=== PATIENT | male | born 1985 ===

== ENCOUNTER 2016-10-06 04:32 | Emergency (ER) | payer SELFPAY ==
[2016-10-06 04:38] VITALS: BP 142/96; TEMP 97.8; O2SAT 99
[2016-10-06 04:43] VITALS: PULSE 61; RESP 14
[2016-10-06] MEDS ORDERED: Fluorescein 1 mg Ophthalmic Strip ONE (05:01)
[2016-10-06] MEDS ORDERED: Ophthalmic Irrigation, Soln ONE (05:06)
[2016-10-06] MEDS ORDERED: Tobramycin 0.3% OPH OINT OD STA (05:28)
[2016-10-06] MEDS ORDERED: Tobramycin 0.3% OPH OINT ONE (05:43)
--- NOTE | 2016-10-06 05:53 | C.PDOC ---
History Of Present Illness A 30 y/o male c/o foreign body sensation to the right eye after walking outside yesterday. Pt notes he irrigated his right eye with water but with no relief. Pt states now he feels a foreign body sensation and tearing to the right eye. Pt denies headache, eye discharge, photophobia, visual changes or any other complaints. Time Seen by Provider: 10/06/16 05:08 Chief Complaint (Nursing): Eye Problem History Per: Patient History/Exam Limitations: no limitations Onset/Duration Of Symptoms: Days Current Symptoms Are (Timing): Still Present Injury To Eye?: No Severity: Mild Associated Symptoms: FB Sensation, Other (tearing). denies: Decreased Vision, Discharge From Eye Recent travel outside of the [place]: No Additional History Per: Patient Past Medical History Reviewed: Historical Data, Nursing Documentation, Vital Signs Vital Signs: Last Vital Signs Temp 97.8 F 10/06/16 04:39 Pulse 61 10/06/16 04:39 Resp 14 10/06/16 04:39 BP 142/96 H 10/06/16 04:39 Pulse Ox 99 10/06/16 06:16 - Medical History PMH: No Chronic Diseases Family History: States: Unknown Family Hx - Social History Hx Tobacco Use: No Hx Alcohol Use: No Hx Substance Use: No - Immunization History Hx Tetanus Toxoid Vaccination: No Hx Influenza Vaccination: No Hx Pneumococcal Vaccination: No Review Of Systems Except As Marked, All Systems Reviewed And Found Negative. Constitutional: Negative for: Fever, Chills Eyes: Positive for: Pain (Foreign body sensation to the right eye), Redness ( right). Negative for: Vision Change, Other (Eye discharge, photophobia) Neurological: Negative for: Headache, Dizziness Physical Exam - Physical Exam Appears: Non-toxic, No Acute Distress Skin: Warm, Dry Head: Atraumatic, Normacephalic Eye(s): right: Other (Right conjunctival injection. Multiple small conjunctival abrasions and small corneal abrasion at 9 o'clock position. No foreign body noted. VA 20/20 without correction), left: Normal Inspection Neurological/Psych: Oriented x3, Normal Speech, Normal Cognition, Normal Cranial Nerves, Other (No focal deficit) ED Course And Treatment O2 Sat by Pulse Oximetry: 99 (RA) Pulse Ox Interpretation: Normal Progress Note: Right eye irrigated with eye wash and tobrex oint applied. Pt in NAD VSS, advised Eye doctor referral today Disposition Counseled Patient/Family Regarding: Diagnosis, Need For Followup, Rx Given - Disposition Referrals: Doe Abraham MD [Staff Provider] - Disposition: HOME/ ROUTINE Disposition Time: 06:12 Condition: STABLE Additional Instructions: Continue eye ointment 3 x daily x [address] Abraham for appt today Return to ER if symptoms worsen Instructions: Corneal Abrasion (ED) Print Language: MOROCCAN - Clinical Impression Clinical Impression: Corneal abrasion, right, Conjunctival abrasion
== END 2016-10-06 06:22 | disposition home or self-care (01) ==
LOC: C.ER 04:32
DX: S05.01XA Injury of conjunctiva and corneal abrasion without foreign body, right eye, initial encounter (principal); X58.XXXA Exposure to other specified factors, initial encounter; Y92.410 Unspecified street and highway as the place of occurrence of the external cause

== ENCOUNTER 2017-10-30 07:35 | Day surgery (SDC) | payer OTHER ==
[2017-10-29 11:36] VITALS: BMI 26.4
[2017-10-30 08:40] VITALS: TEMP 98
[2017-10-30] MEDS ORDERED: Lactated Ringer's 500 ML IV ONE (10:40)
[2017-10-30] MEDS ORDERED: Propofol 10 mg/ml Inj (20 ML) ONE (10:57)
[2017-10-30] MEDS ORDERED: Midazolam 2 MG/2 ML VIAL ONE (10:57)
[2017-10-30 13:10] VITALS: PULSE 55
[2017-10-30 13:16] VITALS: BP 107/67; RESP 11; O2SAT 99
== END 2017-10-30 12:55 | disposition home or self-care (01) ==
LOC: C.ENDO 07:35
PROVIDERS: ATTEND Internal Medicine Gastroenterology
DX: K59.01 Slow transit constipation (principal); R10.13 Epigastric pain; K64.8 Other hemorrhoids; K29.70 Gastritis, unspecified, without bleeding
CPT/HCPCS: 43239; 45378; 88305; J2001; J2250; J2704; J3010; J7120

== ENCOUNTER 2018-08-11 08:31 | Emergency (ER) | payer OTHER ==
[2018-08-11 08:32] VITALS: BMI 26.4
--- NOTE | 2018-08-11 09:11 | C.PDOC ---
History Of Present Illness 32 y/o male presents to the ER complaining of an episode of shortness of breath with coughing with blood tinged sputum which began in the morning. Patient reports that he felt like something might be stuck in his throat; He notes that he last ate a hamburger yesterday. He denies ingesting any hard food or food with bones. He also states that he had cough and runny nose for about 5 days which resolved 1 week ago. Patient denies fever,chills, nausea, vomiting, abdominal pain, diarrhea. Time Seen by Provider: 08/11/18 08:37 Chief Complaint (Nursing): Shortness Of Breath History Per: Patient History/Exam Limitations: no limitations Onset/Duration Of Symptoms: Hrs Current Symptoms Are (Timing): Still Present Severity: Moderate Past Medical History Reviewed: Historical Data, Nursing Documentation, Vital Signs Vital Signs: Last Vital Signs Temp 98.4 F 08/11/18 08:33 Pulse 68 08/11/18 08:33 Resp 17 08/11/18 08:47 BP 126/85 08/11/18 08:33 Pulse Ox 99 08/11/18 08:47 Primary Care Provider: Non [facility] Provider, - Medical History PMH: No Chronic Diseases Denies: Chronic Kidney Disease Surgical History: Endoscopy Family History: States: No Known Family Hx - Social History Hx Tobacco Use: No Hx Alcohol Use: No Hx Substance Use: No - Immunization History Hx Tetanus Toxoid Vaccination: No Hx Influenza Vaccination: No Hx Pneumococcal Vaccination: No Review Of Systems Constitutional: Negative for: Fever, Chills Cardiovascular: Positive for: Other (burning sensation in chest). Negative for: Palpitations Respiratory: Positive for: Cough, Shortness of Breath Gastrointestinal: Negative for: Nausea, Vomiting, Abdominal Pain Skin: Negative for: Rash Physical Exam - Physical Exam Appears: Well, Non-toxic, No Acute Distress Skin: Normal Color, Warm, Dry Eye(s): bilateral: Normal Inspection Ear(s): Bilateral: Normal Oral Mucosa: Moist Throat: Normal, No Erythema, No Exudate, No Drooling, No Mass, Other (uvula midline and normal in appearance ) Neck: Supple Lymphatic: No Adenopathy Chest: No Ecchymosis, No Subcutaneous Emphysema Cardiovascular: Rhythm Regular Respiratory: Normal Breath Sounds, No Rales, No Rhonchi, No Wheezing Gastrointestinal/Abdominal: Normal Exam, Bowel Sounds, Soft, No Tenderness Extremity: Normal ROM Neurological/Psych: Oriented x3 ED Course And Treatment O2 Sat by Pulse Oximetry: 99 (RA) Pulse Ox Interpretation: Normal - Other Rad CXR X-Ray: Viewed By Me, Read By Radiologist Interpretation: HISTORY: prod cough. COMPARISON: Chest x-ray performed 01/30/17. TECHNIQUE: Chest PA and lateral, 2 views. FINDINGS: LUNGS: No focal consolidation. Please note that chest x-ray has limited sensitivity for the detection of pulmonary masses. PLEURA: No significant pleural effusion identified. No definite pneumothorax . CARDIOVASCULAR: The cardiomediastinal silhouette appears within normal limits of size. No atherosclerotic calcification present. OSSEOUS STRUCTURES: Degenerative changes of the spine. VISUALIZED UPPER ABDOMEN: Unremarkable. OTHER FINDINGS: None. IMPRESSION: No focal consolidation. Progress Note: CXR, Xrays of soft tissue neck and EKG ordered and reviewed. Patient given PO Pepcid. Reevaluation Time: 11:00 Reassessment Condition: Improved (Patient reassessed, is resting comfortably and states he feels better. Patient's symptoms likely due to GERD. Xrays neg for abnormalities. Patient given Rx for protonix, and he was instructed to follow up with medical clinic/PMD in 1-2 days. He understands he should return to ED if symptoms worsen.) Disposition Counseled Patient/Family Regarding: Studies Performed, Diagnosis, Need For Followup, Rx Given - Disposition Referrals: [facility] [Outside] Disposition: HOME/ ROUTINE Disposition Time: 11:00 Condition: STABLE Additional Instructions: FOLLOW UP WITH MEDICAL CLINIC IN 1-2 DAYS USE MEDICATION DAILY RETURN TO EMERGENCY ROOM IF YOUR SYMPTOMS WORSEN SEGUIR CON LA CLNICA MDICA EN 1-2 IVY UTILIZAR MEDICAMENTOS DIARIAMENTE VUELVA A LA [facility] SNTOM[facility] Prescriptions: Pantoprazole [Protonix EC Tab] 20 mg PO DAILY #30 ect Instructions: Dyspepsia (DC), Coughing up Blood Forms: [facility] (Swazi) Print Language: DANISH - Clinical Impression Clinical Impression: Dyspepsia, GERD (gastroesophageal reflux disease) - Scribe Statement The provider has reviewed the documentation as recorded by the Christy Flores Provider Attestation: All medical record entries made by the Scribe were at my direction and personally dictated by me. I have reviewed the chart and agree that the record accurately reflects my personal performance of the history, physical exam, medical decision making, and the department course for this patient. I have also personally directed, reviewed, and agree with the discharge instructions and disposition.
--- NOTE | 2018-08-11 10:20 | RAD ---
HISTORY: prod cough COMPARISON: Chest x-ray performed 01/30/17 TECHNIQUE: Chest PA and lateral, 2 views FINDINGS: LUNGS: No focal consolidation. Please note that chest x-ray has limited sensitivity for the detection of pulmonary masses. PLEURA: No significant pleural effusion identified. No definite pneumothorax . CARDIOVASCULAR: The cardiomediastinal silhouette appears within normal limits of size. No atherosclerotic calcification present. OSSEOUS STRUCTURES: Degenerative changes of the spine. VISUALIZED UPPER ABDOMEN: Unremarkable. OTHER FINDINGS: None. IMPRESSION: No focal consolidation.
[2018-08-11 11:04] VITALS: BP 117/74; PULSE 63; RESP 18; TEMP 98.1
--- NOTE | 2018-08-11 16:03 | RAD ---
Date of service: 08/11/2018 HISTORY: Throat pain. COMPARISON: No comparison available. TECHNIQUE: 2 views obtained. FINDINGS: The aero digestive tract appears widely patent with normal epiglottis appreciated. A normal amount of gas seen in the laryngeal ventricle as well as the visualized upper trachea. Prevertebral soft tissue pattern is unremarkable. There is some straightening of the cervical curvature without spondylolisthesis or gross fracture identified. IMPRESSION: Unremarkable neck soft tissues as discussed above. If symptoms persist or worsen follow-up neck CT with intravenous contrast is advised for greater characterization of the neck soft tissues.
--- NOTE | 2018-08-12 11:03 | CARD ---
APPROVED REPORT Date of service: 08/11/2018 EKG Measurement Heart [id number] <Conclusion> Sinus bradycardia Otherwise normal ECG
[2018-08-14 20:08] VITALS: O2SAT 99
== END 2018-08-11 11:05 | disposition home or self-care (01) ==
LOC: C.ER 08:31
DX: K21.9 Gastro-esophageal reflux disease without esophagitis (principal); R10.13 Epigastric pain